=== PATIENT | male | born 1960 | race African-American/Black ===

== ENCOUNTER 2023-06-16 14:28 | Inpatient (IN) | payer OTHER, BC ==
[2023-06-16 15:02] VITALS: BMI 21.7
[2023-06-16] MEDS ORDERED: MAG HYDROX/AL HYDROX/SIMETH 30 ML UNIT-DOSE CUP PO PRN (16:57)
[2023-06-16] MEDS ORDERED: POLYETHYLENE GLYCOL (HEALTHYLAX) 3350 17 GM PACKET PO PRN (16:57)
[2023-06-16] MEDS ORDERED: guaiFENesin 600 MG TABLET.ER (FP) PO PRN (16:57)
[2023-06-16] MEDS ORDERED: LOPERAMIDE HCL 2 MG CAPSULE PO PRN (16:57)
[2023-06-16] MEDS ORDERED: BENZOCAINE/MENTHOL (CHLORASEPTIC ) LOZENGE MM PRN (16:57)
[2023-06-16] MEDS ORDERED: MAGNESIUM HYDROX 2400MG/30ML ORAL SUSPENSION 30 ML CUP PO PRN (16:57)
[2023-06-16] MEDS ORDERED: IBUPROFEN 600 MG TABLET (FP) PO PRN (16:57)
[2023-06-16] MEDS ORDERED: DICYCLOMINE HCL 10 MG CAPSULE PO PRN (16:57)
[2023-06-16] MEDS ORDERED: BENZONATATE 200 MG CAPSULE PO PRN (16:57)
[2023-06-16] MEDS ORDERED: ONDANSETRON *ODT* 4 MG TABLET SL PRN (16:57)
[2023-06-16] MEDS ORDERED: NALOXONE HCL 0.4 MG/ML VIAL IM PRN (16:57)
[2023-06-16] MEDS ORDERED: BISMUTH SUBSALICYLATE 524 MG/30 ML PO PRN (16:57)
[2023-06-16] MEDS ORDERED: NICOTINE POLACRILEX 2 MG GUM BUC PRN (16:57)
[2023-06-16] MEDS ORDERED: NALOXONE HCL (KLOXXADO) 8 MG SPRAY NS PRN (16:57)
[2023-06-16] MEDS ORDERED: BACLOFEN 10 MG TABLET (FP) PO PRN (17:01)
[2023-06-16] MEDS: MELATONIN 5 MG TABLETS PO SCH (22:28)
[2023-06-16] MEDS: THIAMINE HCL 100 MG TABLET (FP) PO SCH (22:28)
[2023-06-16] MEDS: IBUPROFEN 400 MG TABLET (FP) PO PRN (22:28)
[2023-06-16] MEDS: hydrOXYzine PAMOATE 25 MG CAPSULE (FP) PO PRN (22:28)
[2023-06-17] MEDS: NICOTINE 21 MG/24 HOURS TOPICAL PATCH TD SCH (10:47)
[2023-06-17] MEDS: PRENATAL VITAMINS W/ FOLIC ACID TABLET (FP) PO SCH (10:47)
[2023-06-17 11:36] LABS: CHLORIDE 105 mmol/L (98-107); HEMATOCRIT 34.3 % (35.4-49); HEMOGLOBIN 11.7 GM/dL (11.7-16.9); MEAN CELL VOLUME 94.2 fl (80-96); MEAN PLT VOLUME 8.8 fl (7.5-11.1); PLATELET COUNT 202 10^3/uL (134-434); POTASSIUM 3.3 mmol/L (3.5-5.1); RBC 3.64 M/mm3 (4.00-5.60); RDW 13.7 % (11.9-15.9); SODIUM 140 mmol/L (136-145); WHITE BLOOD COUNT 4.7 K/mm3 (4.0-10.0)
[2023-06-17 11:42] LABS: CALCIUM 8.4 mg/dL (8.5-10.1)
[2023-06-17 11:43] LABS: ALBUMIN 2.8 g/dl (3.4-5.0); ANION GAP 6 mmol/L (4-13); BLOOD UREA NITROGEN 9.1 mg/dL (7-18); CO2 28 mmol/L (21-32); GLUCOSE,RANDOM 79 mg/dL (74-106)
[2023-06-17 11:46] LABS: CREATININE 0.7 mg/dL (0.55-1.3); SGOT/AST 23 U/L (15-37); SGPT/ALT 19 U/L (13-61)
[2023-06-17 11:47] LABS: BILIRUBIN,TOTAL 0.8 mg/dL (0.2-1)
[2023-06-17 11:48] LABS: TOT PROT 5.9 g/dl (6.4-8.2)
[2023-06-17 11:49] LABS: ALK PHOS 56 U/L (45-117)
[2023-06-17] MEDS ORDERED: LORazepam 1 MG TABLET PO PRN (12:48)
[2023-06-17] MEDS ORDERED: POTASSIUM CHLORIDE ORAL LIQUID 20 MEQ/15 ML PO SCH (14:30)
[2023-06-17] MEDS: amLODIPine BESYLATE 5 MG TABLET (FP) PO SCH (15:06)
[2023-06-17] MEDS: POTASSIUM CHLORIDE ORAL LIQUID 20 MEQ/15 ML PO SCH (15:07)
[2023-06-17] MEDS ORDERED: LORazepam 2 MG TABLET PO SCH (17:00)
[2023-06-17] MEDS: LORazepam 2 MG TABLET PO SCH (17:14)
[2023-06-17] MEDS: LORazepam 1 MG TABLET PO SCH (17:48)
[2023-06-18] MEDS: LORazepam 1 MG TABLET PO SCH (06:12)
[2023-06-19] MEDS: LORazepam 0.5 MG TABLET PO SCH (05:30)
[2023-06-19] MEDS: amLODIPine BESYLATE 10 MG TABLET (FP) PO SCH (10:27)
[2023-06-19] MEDS: LISINOPRIL 10 MG TABLET PO SCH (11:47)
[2023-06-19 21:10] VITALS: RESP 16
[2023-06-20] MEDS: LORazepam 0.5 MG TABLET PO ONE (05:40)
[2023-06-20] MEDS: ACETAMINOPHEN 325 MG TABLET (FP) PO PRN (10:25)
[2023-06-20 12:59] VITALS: BP 113/54; PULSE 60; TEMP 98.2
== END 2023-06-20 13:30 | disposition home or self-care (01) | DRG 897 ==
LOC: YASAS 14:28 → Y6N 18:17
PROVIDERS: ADMIT Allergy & Immunology; ATTEND Surgery
PROC: HZ2ZZZZ Detoxification Services for Substance Abuse Treatment (ICD-10-PCS; principal; 2023-06-16)
DX: F10.230 Alcohol dependence with withdrawal, uncomplicated (principal); F14.20 Cocaine dependence, uncomplicated; F17.210 Nicotine dependence, cigarettes, uncomplicated; E87.6 Hypokalemia; I10 Essential (primary) hypertension; M54.50 Low back pain, unspecified; G89.29 Other chronic pain; Z86.19 Personal history of other infectious and parasitic diseases; Z99.89 Dependence on other enabling machines and devices
CPT/HCPCS: 36415; 80053; 80307; 84132; 85027; 86593; 86780; 87635; 93005; 93010